=== PATIENT | male | born 1985 | race American Indian/Alaskan Native ===

== ENCOUNTER 2018-12-28 20:29 | Emergency (ER) | payer SELFPAY ==
[2018-12-28 20:57] LABS: Hematocrit 40.3 % (35.5-45.6); Hemoglobin 13.7 gm/dl (11.8-15.2); Mean Corpuscular HGB Conc 34 % (32-34); Mean Corpuscular Volume 92 fl (84-94); Platelet Count 143 K/mm3 (140-440); Red Blood Count 4.38 M/mm3 (3.65-5.03); Red Cell Distribution Width 12.7 % (13.2-15.2)
[2018-12-28 20:58] LABS: Basophils % (Auto) 0.5 % (0.0-1.8); Eosinophils % (Auto) 0.6 % (0.0-4.3); Lymphocytes # (Auto) 1.3 K/mm3 (1.2-5.4); Lymphocytes % (Auto) 17.6 % (13.4-35.0); Monocytes # (Auto) 0.5 K/mm3 (0.0-0.8); Monocytes % (Auto) 6.8 % (0.0-7.3)
[2018-12-28 21:05] LABS: Alanine Aminotransferase 11 units/L (7-56); Albumin 4.3 g/dL (3.9-5); BUN/Creatinine Ratio 13; Blood Urea Nitrogen 12 mg/dL (9-20); Calcium 8.9 mg/dL (8.4-10.2); Hemolysis Index 16
[2018-12-28] MEDS ORDERED: IBUPROFEN PO ONE (21:46)
[2018-12-28 21:51] LABS: Bacteria,Urine 1+ /HPF (Negative); Bilirubin,Urine NEG (Negative); Blood,Urine SM (Negative); Color,Urine Yellow (Yellow); Mucus,Urine FEW /HPF; Protein,Urine <15 mg/dL mg/dL (Negative)
--- NOTE | 2018-12-28 22:54 | Ultrasound Report ---
PROCEDURE: US TESTICULAR DOPPLER COMP TECHNIQUE: Comparison normal ultrasound scrotum HISTORY: testicular pain and swelling COMPARISONS: FINDINGS: Right testicle is 3.4 x 2.6 x 3.2 cm Left testicle 3.6 x 2.3 x 3.3 cm. The testicles demonstrate normal echogenicity. There is bilateral epididymal enlargement and hyperemia. There is a hypoechoic focus within the left epididymis which appears solid. There is a moderate left hydrocele. Epididymal enlargement appears mo re prominent on the left IMPRESSION: Bilateral epididymal enlargement and hyperemia greater on the left most consistent with epididymitis Left hydrocele. This document is electronically signed by Suraj Angelo MD., December 28 2018 10:52:24 PM ET
[2018-12-28] MEDS ORDERED: ZITHROMAX PO ONE (23:13)
[2018-12-28] MEDS ORDERED: XYLOCAINE 1% MPF 5 mL INFILTRATI ONE (23:13)
[2018-12-28] MEDS ORDERED: ROCEPHIN IM ONE (23:13)
--- NOTE | 2018-12-28 23:19 | Emergency Department Report ---
ED Male HPI - General Chief complaint: Urogenital-Male Stated complaint: LOWER ABD AND TESTICLE PAIN Time Seen by Provider: 12/28/18 21:46 Source: patient Mode of arrival: Ambulatory Limitations: No Limitations - History of Present Illness Initial comments: Patient is a 33-year-old -[place] male who is presenting with 4 days of testicular pain. Patient states that he has not had any new sexual encounters and he also denies any dysuria or penile discharge. Patient states that his left testicle is swollen and very tender. Patient states she is achy sensation is worse with walking and is 8 out of 10 in severity. - Related Data Previous Rx's Medication Instructions Recorded Last Taken Type DOXYCYCLINE Hyclate [Vibramycin 100 mg PO Q12HR #14 capsule 12/28/18 Unknown Rx CAP] Ketorolac [Toradol] 10 mg PO Q6H PRN #12 tablet 12/28/18 Unknown Rx traMADol [Ultram] 50 mg PO Q6HR PRN #12 tablet 12/28/18 Unknown Rx Allergies Allergy/AdvReac Type Severity Reaction Status Date / Time No Known Allergies Allergy Unverified 12/28/18 20:37 ED Review of Systems ROS: Stated complaint: LOWER ABD AND TESTICLE PAIN Other details as noted in HPI Comment: All other systems reviewed and negative ED Past Medical Hx - Past Medical History Previous Medical History?: No - Surgical History Past Surgical History?: No - Social History Smoking Status: Current Every Day Smoker Substance Use Type: None - Medications Home Medications: Home Medications Medication Instructions Recorded Confirmed Last Taken Type DOXYCYCLINE Hyclate [Vibramycin 100 mg PO Q12HR #14 capsule 12/28/18 Unknown Rx CAP] Ketorolac [Toradol] 10 mg PO Q6H PRN #12 tablet 12/28/18 Unknown Rx traMADol [Ultram] 50 mg PO Q6HR PRN #12 tablet 12/28/18 Unknown Rx ED Physical Exam - General Limitations: No Limitations General appearance: alert, in no apparent distress - Head Head exam: Present: atraumatic, normocephalic - Eye Eye exam: Present: normal appearance - ENT ENT exam: Present: mucous membranes moist - Neck Neck exam: Present: normal inspection - Respiratory Respiratory exam: Present: normal lung sounds bilaterally. Absent: respiratory distress, wheezes, rales - Cardiovascular Cardiovascular Exam: Present: regular rate, normal rhythm. Absent: systolic murmur, diastolic murmur, rubs, gallop - GI/Abdominal GI/Abdominal exam: Present: soft, normal bowel sounds. Absent: distended, tenderness, guarding, rebound - Rectal Rectal exam: Present: deferred - exam: Present: testicular tenderness (and swelling of the left testicle). Absent: urethral discharge - Extremities Exam Extremities exam: Present: normal inspection - Back Exam Back exam: Present: normal inspection - Neurological Exam Neurological exam: Present: alert, oriented X3 - Psychiatric Psychiatric exam: Present: normal affect, normal mood - Skin Skin exam: Present: warm, dry, intact, normal color. Absent: rash ED Course Vital Signs 12/28/18 20:35 Temperature 98.3 F Pulse Rate 70 Respiratory 18 Rate Blood Pressure 124/73 O2 Sat by Pulse 100 Oximetry ED Medical Decision Making - Lab Data Result diagrams: 12/28/18 20:40 12/28/18 20:40 Lab Results 12/28/18 12/28/18 12/28/18 Range/Units 20:40 20:40 Unknown WBC 7.6 (4.5-11.0) K/mm3 RBC 4.38 (3.65-5.03) M/mm3 Hgb 13.7 (11.8-15.2) gm/dl Hct 40.3 (35.5-45.6) % MCV 92 (84-94) fl MCH 31 (28-32) pg MCHC 34 (32-34) % RDW 12.7 L (13.2-15.2) % Plt Count 143 (140-440) K/mm3 Lymph % (Auto) 17.6 (13.4-35.0) % [place] % (Auto) 6.8 (0.0-7.3) % Eos % (Auto) 0.6 (0.0-4.3) % Baso % (Auto) 0.5 (0.0-1.8) % Lymph # 1.3 (1.2-5.4) K/mm3 [place] # 0.5 (0.0-0.8) K/mm3 Eos # 0.0 (0.0-0.4) K/mm3 Baso # 0.0 (0.0-0.1) K/mm3 Seg Neutrophils % 74.5 H (40.0-70.0) % Seg Neutrophils # 5.7 (1.8-7.7) K/mm3 Sodium 138 (137-145) mmol/L Potassium 4.0 (3.6-5.0) mmol/L Chloride 97.6 L (98-107) mmol/L Carbon Dioxide 27 (22-30) mmol/L Anion Gap 17 mmol/L BUN 12 (9-20) mg/dL Creatinine 0.9 (0.8-1.5) mg/dL Estimated GFR > 60 ml/min BUN/Creatinine Ratio 13 % Glucose 97 (75-100) mg/dL Calcium 8.9 (8.4-10.2) mg/dL Total Bilirubin 1.20 (0.1-1.2) mg/dL AST 14 (5-40) units/L ALT 11 (7-56) units/L Alkaline Phosphatase 61 (35-129) units/L Total Protein 7.6 (6.3-8.2) g/dL Albumin 4.3 (3.9-5) g/dL Albumin/Globulin Ratio 1.3 % Urine Color Yellow (Yellow) Urine Turbidity Slightly-cloudy (Clear) Urine pH 5.0 (5.0-7.0) Ur Specific [place] 1.020 (1.003-1.030) Urine Protein <15 mg/dl (Negative) mg/dL Urine Glucose (UA) Neg (Negative) mg/dL Urine Ketones Neg (Negative) mg/dL Urine Blood Sm (Negative) Urine Nitrite Neg (Negative) Urine Bilirubin Neg (Negative) Urine Urobilinogen 4.0 (<2.0) mg/dL Ur Leukocyte Esterase Lg (Negative) Urine WBC (Auto) 107.0 H (0.0-6.0) /HPF Urine RBC (Auto) 8.0 (0.0-6.0) /HPF Urine Bacteria (Auto) 1+ (Negative) /HPF Urine Mucus Few /HPF - Radiology Data PROCEDURE: US TESTICULAR DOPPLER COMP TECHNIQUE: Comparison normal ultrasound scrotum HISTORY: testicular pain and swelling COMPARISONS: FINDINGS: Right testicle is 3.4 x 2.6 x 3.2 cm Left testicle 3.6 x 2.3 x 3.3 cm. The testicles demonstrate normal echogenicity. There is bilateral epididymal enlargement and hyperemia. There is a hypoechoic focus within the left epididymis which appears solid. There is a moderate left hydrocele. Epididymal enlargement appears more prominent on the left IMPRESSION: Bilateral epididymal enlargement and hyperemia greater on the left most consistent with epididymitis Left hydrocele. This document is electronically signed by Suraj Ding MD., December 28 2018 10:52:24 PM ET Transcribed By: VAISHALI Dictated By: JESSICA DING MD Electronically Authenticated By: JESSICA DING MD Signed Date/Time: 12/28 DD/ 01 TD/TT: 12/28/182221 - Medical Decision Making Patient with left testicular pain and swelling. Patient's ultrasound shows bilateral epididymitis with left sided hydrocele. Because of the patient's age patient will be treated for STI's. Patient also discharged home with doxycycline. Critical care attestation.: If time is entered above; I have spent that time in minutes in the direct care of this critically ill patient, excluding procedure time. ED Disposition Clinical Impression: Epididymitis Disposition: DC-01 TO HOME OR SELFCARE Is pt being admited?: No Does the pt Need Aspirin: No Condition: Stable Instructions: Epididymitis (ED) Forms: STI Treatment and Prevention Time of Disposition: 23:19
[2018-12-29 00:17] VITALS: BP 117/74
== END 2018-12-29 00:17 | disposition home or self-care (01) ==
LOC: ED 20:29
DX: N45.1 Epididymitis (principal); F17.200 Nicotine dependence, unspecified, uncomplicated
CPT/HCPCS: 36415; 80053; 81001; 85025; 93975; J0696; 96372